=== PATIENT | male | born 1995 ===

== ENCOUNTER 2017-06-20 19:08 | Emergency (ER) | payer BC ==
[2017-06-20] MEDS ORDERED: Sodium Chloride 0.9% 1,000 ML IV STA (19:33)
--- NOTE | 2017-06-20 19:36 | ED PDOC ---
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 Patient reports that while he was walking home around 18:00, he began to cough up blood along with white small substances. He states that he has shortness of breath and was feeling fatigue earlier in the day. Patient notes that he has been has coughed up about two cups of blood since 18:00. Patient denies chest pain, headache, fever, chills, nausea, vomiting, diarrhea, abdominal pain, dizziness or other complaints. Time/Duration: 1-3 hours Symptom Onset: Sudden Symptom Course: Unchanged Activities at Onset: Light Modifying Factors (Text): None Context: Walking, Street Associated Symptoms (Text): shortness of breath and fatigue Past Medical History - Provider Review Nursing Documentation Reviewed: Yes Family/Social History - Physician Review Nursing Documentation Reviewed: Yes Family/Social History: Unknown Family HX Allergies/Home Meds Allergies/Adverse Reactions: Allergies aspirin Allergy (Verified 06/20/17 19:27) FATIGUE decrease WBC Home Medications: Home Meds Medication Instructions Recorded Confirmed No Known Home Med 06/20/17 06/20/17 Review of Systems - Physician Review All systems were reviewed & negative as marked: Yes - Review of Systems Constitutional: Fatigue. absent: Fevers ENT: Sore Throat (mild) Respiratory: SOB, Cough (with blood and white small substance) Cardiovascular: absent: Chest Pain Gastrointestinal: absent: Abdominal Pain Genitourinary Male: absent: Dysuria, Hematuria Neurological: absent: Headache Physical Exam Vital Signs Temp Pulse Resp BP Pulse Ox 06/20/17 21:22 92 H 16 155/88 H 100 06/20/17 19:28 16 98 06/20/17 19:18 98.6 F 101 H 18 146/87 99 Temperature: Afebrile Blood Pressure: Normal Pulse: Tachycardic Respiratory Rate: Normal Appearance: Positive for: Well-Appearing, Non-Toxic, Comfortable Pain Distress: None Mental Status: Positive for: Alert and Oriented X 3 - Systems Exam Head: Present: Atraumatic, Normocephalic Pupils: Present: PERRL Conjunctiva: Present: Normal Mouth: Present: Moist Mucous Membranes, Other (residual of blood) Pharnyx: Present: ERYTHEMA, Other (There is the appearance of a small exudate with bleeding in the area at the left tonsil). No: Peritonsilar Swelling, Uvular Deviation, Muffled/Hoarse Voice, Strider, Soft Palate/Uvular Edema Neck: Present: Normal Range of Motion Respiratory/Chest: Present: Clear to Auscultation, Good Air Exchange. No: Respiratory Distress, Accessory Muscle Use Cardiovascular: Present: Regular Rate and Rhythm, Normal S1, S2. No: Murmurs Abdomen: Present: Normal Bowel Sounds. No: Tenderness, Distention, Peritoneal Signs Back: Present: Normal Inspection Upper Extremity: Present: Normal Inspection. No: Cyanosis, Edema Lower Extremity: Present: Normal Inspection. No: Edema Neurological: Present: GCS=15, CN II-XII Intact, Speech Normal Skin: Present: Warm, Dry, Normal Color. No: Rashes Psychiatric: Present: Alert, Oriented x 3, Normal Insight, Normal Concentration Medical Decision Making ED Course and Treatment: 06/20/17 19:21 Impression: 21 year old, male coughing blood with blood in the left tonsillar region Plan: -- EKG -- Chest X-ray -- Labs -- Sodium Chloride -- Reassess and disposition Progress Notes: 06/20/17 21:35 Patient with hemoptysis, about two cups full prior to arrival and additional clots and near cup here. Labs sent with initial H/H normal and platelets 107; other coags normal. CXR is normal. Rapid strep is normal. Case was discussed with Dr. Hewitt for ENT consult. 06/20/17 21:50 Patient will need further observation as bleeding is still present and will need repeat H/H and ENT and pulmonary eval to discern source of blood. Case discussed with Dr. Arenas for placement on here service. 06/20/17 22:27 ENT residents are here in the hospital to evaluate the patient. - Lab Interpretations Lab Results: 06/20/17 19:55 06/20/17 19:55 Lab Results 06/20/17 20:50: Grp A Beta Strep Ag Negative 06/20/17 19:55: Sodium 139, Potassium 4.4, Chloride 101, Carbon Dioxide 27, Anion Gap 15, BUN 19, Creatinine 1.0, Est GFR ( Amer) > 60, Est GFR (Non- Af Amer) > 60, Random Glucose 94, Calcium 9.3, Total Bilirubin 0.8, AST 39, ALT 73 H, Alkaline Phosphatase 65, NT-Pro-B Natriuret Pep < 11.1, Total Protein 7.4 , Albumin 4.2, Globulin 3.2, Albumin/Globulin Ratio 1.3, Lipase 82 06/20/17 19:55: PT 10.8, INR 1.00, APTT 27.3, D-Dimer, Quantitative 0.19 06/20/17 19:55: WBC 10.9, RBC 4.92, Hgb 15.2, Hct 41.6 L, MCV 84.6, MCH 30.9, MCHC 36.5, RDW 13.6, Plt Count 107 L, MPV 11.3 H, Gran % 70.9 H, Lymph % (Auto) 18.7 L, [place] % (Auto) 9.3 H, Eos % (Auto) 0.9 L, Baso % (Auto) 0.2, Gran # 7.75 H, Lymph # 2.1, [place] # 1.0 H, Eos # 0.1, Baso # 0.02 06/20/17 19:54: Blood Type O POSITIVE, Antibody Screen Negative, BBK History Checked No verified bt I have reviewed the lab results: Yes - RAD Interpretation Radiology Orders: 06/20/17 19:31 CHEST TWO VIEWS (PA/LAT) [RAD] Stat - EKG Interpretation Interpreted by ED Physician: Yes Type: 12 lead EKG - Medication Orders Current Medication Orders: Discontinued Medications Sodium Chloride (Sodium Chloride 0.9%) 1,000 mls @ 999 mls/hr IV .Q1H1M STA Stop: 06/20/17 20:33 Last Admin: 06/20/17 20:10 Dose: 999 mls/hr - Scribe Statement The provider has reviewed the documentation as recorded by the Scribe 06/20/2017 Whitney Mayer Attestation: All medical record entries made by the Scribe were at my direction and personally dictated by me. I have reviewed the chart and agree that the record accurately reflects my personal performance of the history, physical exam, medical decision making, and the department course for this patient. I have also personally directed, reviewed, and agree with the discharge instructions and disposition. Disposition/Present on Arrival - Present on Arrival Any Indicators Present on Arrival: No - Disposition Have Diagnosis and Disposition been Completed?: Yes Diagnosis: Hemoptysis Disposition: HOSPITALIZED Disposition Time: 21:50 Patient Plan: Observation Condition: FAIR
[2017-06-20 19:37] VITALS: TEMP 98.6; BMI 27.2
[2017-06-20 20:04] LABS: BASO # 0.02 K/mm3 (0.0-2.0); BASO % 0.2 % (0.0-3.0); EOS # 0.1 (0.0-0.7); EOS % 0.9 % (1.5-5.0); GRAN # 7.75 (1.4-6.5); GRAN % 70.9 % (50.0-68.0); HEMOGLOBIN 15.2 gm/dL (14.0-18.0); LYMPH # 2.1 (1.2-3.4); LYMPH % 18.7 % (22.0-35.0); MEAN CELL VOLUME 84.6 fL (80.0-105.0); MEAN CORPUSCULAR HEMOGLOBIN 30.9 pg (25.0-35.0); MEAN CORPUSCULAR HGB CONC 36.5 g/dl (31.0-37.0); MEAN PLATELET VOLUME 11.3 fl (7.0-11.0); MONO % 9.3 % (1.0-6.0); PLATELET COUNT 107 10^3/uL (120.0-450.0); RBC 4.92 10^6/uL (3.5-6.1); RED CELL DISTRIBUTION WIDTH 13.6 % (11.5-14.5); WHITE BLOOD COUNT 10.9 10^3/ul (4.5-11.0)
[2017-06-20 20:14] LABS: ALB/GLOB RATIO 1.3 (1.1-1.8); ALBUMIN 4.2 g/dL (3.0-4.8); ALT/SGPT 73 U/L (7-56); AST/SGOT 39 U/L (15-59); BLOOD UREA NITROGEN 19 mg/dL (7-21); CALCIUM 9.3 mg/dL (8.4-10.5); GFR AFRICAN-AMERICAN > 60; GFR NON-AFRICAN AMERICAN > 60; LIPASE 82 U/L (23-300)
[2017-06-20 20:16] LABS: PARTIAL THROMBOPLASTIN TIME 27.3 Seconds (23.7-30.8); PROTHROMBIN TIME 10.8 Seconds (9.9-11.8)
[2017-06-20 20:17] LABS: D DIMER 0.19 mg/L FEU (0-0.50)
[2017-06-20 20:23] LABS: B-TYPE NATRIURETIC PEPTIDE < 11.1 pg/mL (0-450)
[2017-06-20 21:37] VITALS: BP 155/88
[2017-06-20 22:39] VITALS: PULSE 99; O2SAT 98
[2017-06-20 23:21] VITALS: RESP 18
[2017-06-21] MEDS ORDERED: Sodium Chloride 0.9% 1,000 ML IV SCH (00:15)
--- NOTE | 2017-06-21 01:11 | CP.PCM.PN ---
Subjective - Date & Time of Evaluation Date of Evaluation: 06/20/17 Time of Evaluation: 11:00 - Subjective Subjective: Patient seen at the request of his RN for his decision to leave AMA. Patient was admitted with diagnosis of hemoptysis.ENT was consulted.Pt was seen by ENT resident while still in the ER.He was cleared for discharge.However pt has not been seen by Dr Arenas to whose service he is admitted,nor does he want to wait for any further tests to see if there is any additional reason for his "spitting up blood". Pt is alert,oriented x 3 and is ambulatory. VS are stable. He does not want any further examinations,tests or treatment at this facility. Patient was told of the possible risk of recurrence of the problem,and the need to follow up. He states he understands what he is told,states he will follow up with the ENT MD and/or his PMD tomorrow. He signed out AMA. Before he left,he was advised to return to the ER if needed. Time spent with patient: 25 mins Objective - Vital Signs/Intake and Output Vital Signs (last 24 hours): Temp Pulse Resp BP Pulse Ox 98.6 F 99 H 18 155/88 H 98 06/20/17 19:18 06/20/17 22:38 06/20/17 23:20 06/20/17 21:22 06/20/17 23:20 - Medications Medications: Current Medications Sodium Chloride (Sodium Chloride 0.9%) 1,000 mls @ 100 mls/hr IV .Q10H IRVIN - Labs Labs: 06/20/17 19:55 06/20/17 19:55 PT 10.8 Seconds (9.9-11.8) 06/20/17 19:55 INR 1.00 (0.93-1.08) 06/20/17 19:55 APTT 27.3 Seconds (23.7-30.8) 06/20/17 19:55
--- NOTE | 2017-06-21 08:41 | RAD ---
HISTORY: hemoptysis COMPARISON: No prior. TECHNIQUE: Chest PA and lateral FINDINGS: LUNGS: No active pulmonary disease. PLEURA: No significant pleural effusion identified. No pneumothorax apparent. CARDIOVASCULAR: Normal. OSSEOUS STRUCTURES: No significant abnormalities. VISUALIZED UPPER ABDOMEN: Normal. OTHER FINDINGS: None. IMPRESSION: No active disease.
--- NOTE | 2017-06-21 09:52 | CARD ---
APPROVED REPORT EKG Measurement Heart [id number] <Conclusion> Normal sinus rhythm Normal ECG
--- NOTE | 2017-06-21 14:57 | CON ---
ENT CONSULTATION DATE: 06/20/2017 CHIEF COMPLIANT: Hemoptysis. HISTORY OF PRESENT ILLNESS: This is a 21-year-old male with a past medical history of ITP as a childhood which he claims has been cured, came to the ER at the [facility] around 9:00 p.m. on 06/20/2017 with bleeding from the mouth. Per the patient the bleeding of the mouth started about 6:00 p.m. as he was talking to his grandmother on the phone and he has had some sensation of blood tickling down his throat and he started spiting it out. Per the patient, the bleeding was roughly two cups full and thus when he decided to come to the ER to get further workup. While in the ER, the patient reports that he has not had any further bleeding, no episodes of cough or any other associated symptoms of bleeding. He is not able to taste any blood going down his throat currently. He reports that he has never had these symptoms before and the bleeding spontaneously occurred by itself. He denies any trauma to the back of the throat. He denies any recent infection, recent sore throats, or any other history of pertaining to the bleeding. The patient reported that initially, the bleeding was juan red blood which slowly by slowly started turning into saliva mixed with amount of blood. He denies any difficulty swallowing or eating his food. He was able to tolerate his diet well. He denies any ear pain or any ear discharge. He denies any rhinorrhea or nasal congestion or any upper respiratory tract infection. REVIEW OF SYSTEMS: Negative, but present as stated in the HPI. PAST MEDICAL HISTORY: ITP as childhood. PAST SURGICAL HISTORY: Denies. ALLERGIES: HE HAS ALLERGIES TO ASPIRIN WHICH HE CLAIMS CAUSES HIS WHITE BLOOD CELLS TO GO DOWN. MEDICATIONS: He is not taking any current medications. SOCIAL HISTORY: He smokes about one cigar a week, social alcohol use, and no illicit drug use. OBJECTIVE/PHYSICAL EXAMINATION: GENERAL: The patient is alert and oriented x3, he is in no acute distress. HEENT: Nose: The nasal cavity is patent bilaterally without an masses or lesions. No bleeding appreciated in the nasal cavities bilaterally. Ears: Left ear auditory canal is patent and open. A tympanic membrane is intact and no effusions appreciated behind the tympanic membrane. Right ear canal is patent without any masses. The tympanic membrane is intact without any masses and no effusions appreciated behind the tympanic membrane. Oral cavity: The patient does not have any masses or lesions appreciated in the oral cavity/ In the oropharynx by the left tonsil, the superior pole of the left tonsil at the area of the posterior pillar, there is a old red blood clot. There is no sign of any active bleeding. The right tonsil, right tonsil fossa, and right tonsil pillars are patent without any bleeding or any masses. NECK: There is a small lymphadenopathy appreciated at the left submandibular region which the patient claims is tender to palpation. LABORATORY DATA: Labs were obtained from ER attending who claimed that the white blood cell was around 10.2, the hemoglobin was 15, and platelets were 109. PLAN AND ASSESSMENT: This is a 21-year-old male with the past medical history of idiopathic thrombocytopenic purpura who presented to [place] [facility] for bleeding from mouth. At this point, there does not seem to be any active bleeding. The patient was told to gargle water in front of the ENT staff and spitted out which clot and there was no further bleeding appreciated after that. The patient is currently stable and in no respiratory distress. He is cleared from ENT perspective and told to follow up as an outpatient and was also informed that if there is any more active bleeding that we occurs to come back to the ER. No antibiotics are indicated at this current point. No pain management is indicated. The patient was recommended to take soft diet and avoid hard and crunchy foods to drink as many fluids as he can. Juan J Hewitt DO
== END 2017-06-20 22:39 | disposition left against medical advice (07) ==
LOC: ED 19:08 → UNDOADMOB 21:47 → ERH 21:47
DX: R04.2 Hemoptysis (principal); D69.3 Immune thrombocytopenic purpura
CPT/HCPCS: 71020; 80053; 83690; 83880; 85025; 85378; 85610; 85730; 86850; 86900; 87070; 87430; 93005; 99285; J7040